=== PATIENT | female | born 1995 | race American Indian/Alaskan Native ===

== ENCOUNTER 2016-12-01 14:00 | Emergency (ER) | payer OTHER ==
[2016-12-01] MEDS ORDERED: VALIUM IM ONE (17:55)
[2016-12-01] MEDS ORDERED: MOTRIN PO ONE (17:55)
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
[2016-12-01 20:11] VITALS: BP 106/66
== END 2016-12-01 20:11 | disposition home or self-care (01) ==
LOC: ED 14:00
DX: S16.1XXA Strain of muscle, fascia and tendon at neck level, initial encounter (principal); M54.6 Pain in thoracic spine; R51 Headache; V89.2XXA Person injured in unspecified motor-vehicle accident, traffic, initial encounter; Y93.89 Activity, other specified; Y92.89 Other specified places as the place of occurrence of the external cause; Y99.8 Other external cause status
CPT/HCPCS: 72040; 72070; 96372; 99283; J3360

== ENCOUNTER 2019-11-06 15:55 | Observation (INO) | payer OTHER ==
[2019-11-06 17:41] LABS: Bilirubin,Urine NEG (Negative); Blood,Urine LG (Negative); Color,Urine Yellow (Yellow); Protein,Urine <15 mg/dL mg/dL (Negative)
[2019-11-06 18:12] LABS: HCG Qualitative,Urine Negative (Negative)
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
[2019-11-06 23:48] LABS: Hematocrit 41.2 % (30.3-42.9); Hemoglobin 14.1 gm/dl (10.1-14.3); Mean Corpuscular HGB Conc 34 % (30-34); Mean Corpuscular Volume 96 fl (79-97); Platelet Count 165 K/mm3 (140-440); Red Blood Count 4.29 M/mm3 (3.65-5.03); Red Cell Distribution Width 12.5 % (13.2-15.2)
[2019-11-07 00:05] LABS: Alanine Aminotransferase 8 units/L (7-56); Albumin 4.4 g/dL (3.9-5); Blood Urea Nitrogen 5 mg/dL (7-17); Calcium 9.5 mg/dL (8.4-10.2); Hemolysis Index 29
[2019-11-07 00:06] LABS: BUN/Creatinine Ratio 7
--- NOTE | 2019-11-07 00:55 | Cat Scan Report ---
CT abdomen pelvis w con INDICATION / CLINICAL INFORMATION: abd pain. TECHNIQUE: Axial CT imaging of abdomen and pelvis was obtained with IV contrast. Coronal and sagittal reformatte d imaging obtained and reviewed. All CT scans at this location are performed using CT dose reduction for ALARA by means of automated exposure control. COMPARISON: None available. FINDINGS: CT abdomen with contrast demonstrates normal appearance of the liver, spleen, pancreas, kidneys, and adrenal glands. Gallbladder is unremarkable. No biliary dilatation. CT pelvis with contrast demonstrates trace amount of free fluid in the posterior cul-de-sac. There is prominent endometrial thickening/fluid present. Please correlate with status of patient's menstrual cycle. The appendix is enlarged measuring 1 cm in diameter. The appendix is retrocecal in location. I do not appreciate significant periappendiceal inflammatory change Additionally, there are multiple loops of fluid-filled nondilated small bowel throughout the pelvis i n a pattern that is most suggestive of enteritis. 18 mm left ovarian cyst is noted. Visualized lung bases are clear. No acute osseous abnormality. IMPRESSION: 1. Abnormally enlarged appendix without appreciable periappendiceal inflammatory change. Findings cou ld be due to a mild acute appendicitis and clinical correlation with clinical presentation is recomme nded. 2 Multiple loops of nondilated fluid-filled small bowel are present throughout the pelvis and the pat tern most suggestive of enteritis. 3. Marked thickening/fluid within the endometrium of the uterus. Please correlate with patient's stag e of menstrual cycle. Signer Name: Nayla Gomes MD Signed: 11/07/2019 12:50 AM Workstation Name: [id number]
[2019-11-07] MEDS ORDERED: PIPERACIL/TAZOBACTA 4.5/NS 100 4.5 GM/100 ML VIAL IV ONE (01:36)
[2019-11-07] MEDS ORDERED: SODIUM CHLORIDE 0.9% 1000 ML 1,000 ML IV ONE (01:36)
[2019-11-07] MEDS ORDERED: ACETAMINOPHEN 650 MG RECT SUPP PR PRN (02:58)
[2019-11-07] MEDS ORDERED: ONDANSETRON 4 MG/2 ML INJ IV PRN (02:59)
[2019-11-07] MEDS ORDERED: MORPHINE 2 MG/1 ML INJ IV PRN (03:00)
[2019-11-07] MEDS ORDERED: D5W/0.45% NACL 1,000 ML IV SCH (03:00)
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
[2019-11-07] MEDS ORDERED: LACTATED RINGERS 1,000 ML IV SCH (04:00)
[2019-11-07] MEDS ORDERED: PIPERACILLIN/TAZOBACTAM 3.375 3.375 GM/50 ML BAG IV SCH (10:00)
--- NOTE | 2019-11-07 12:21 | Event Note ---
Date: 11/07/19 Patient seen and examined She is alert and oriented and resting comfortably in the bed She states the pain has improved and at this time she offers no specific complaints Denies nausea abdominal pain or dysuria CT of the abdomen and pelvis results reviewed Abdomen is benign Lab results reviewed General surgery consult. Possible discharge home after the surgery evaluation
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
--- NOTE | 2019-11-07 13:46 | Discharge Summary ---
Providers - Providers Date of Admission: 11/07/19 01:40 Date of discharge: 11/07/19 Attending physician: JARAD MAN 11/07/19 01:39 Consult to Physician [CONS] Routine Comment: Consulting Provider: GARRETT BEE Physician Instructions: Reason For Exam: abd pain. api Primary care physician: [facility] Hospitalization Condition: Good Pertinent studies: CT of the abdomen and pelvis Hospital course: Patient was admitted with suspected acute appendicitis This morning patient's abdomen is benign General surgery was consulted Note reviewed and discussed with general surgeon She thinks patient most likely has some enteritis She tolerated regular diet during lunchtime and denies any pain She is medically stable for discharge Will empirically prescribe Flagyl for 7 days Disposition: DC- TO HOME OR SELFCARE Time spent for discharge: 36 min - Discharge Diagnoses (1) Abdominal pain Status: Acute Qualifiers: Abdominal location: right lower quadrant Qualified Code(s): R10.31 - Right lower quadrant pain Comment: Resolved (2) Enteritis Status: Acute Comment: Empiric Flagyl x7 days Core Measure Documentation - Palliative Care Palliative Care/ Comfort Measures: Not Applicable - Core Measures Any of the following diagnoses?: none Exam - Constitutional Vitals: Temp Pulse Resp BP Pulse Ox 98.3 F 87 20 103/68 96 11/07/19 12:15 11/07/19 12:15 11/07/19 12:15 11/07/19 12:15 11/07/19 12:15 General appearance: Present: no acute distress - EENT Eyes: Present: PERRL ENT: hearing intact, clear oral mucosa - Neck Neck: Present: supple, normal ROM - Respiratory Respiratory effort: normal Respiratory: bilateral: CTA - Cardiovascular Rhythm: regular Heart Sounds: Present: S1 & S2 - Extremities Extremities: No edema - Abdominal General gastrointestinal: Present: soft, non-tender - Rectal Rectal Exam: deferred - Integumentary Integumentary: Present: clear - Musculoskeletal Musculoskeletal: strength equal bilaterally - Psychiatric Psychiatric: appropriate mood/affect - Neurologic Neurologic: CNII-XII intact, no focal deficits Plan Activity: advance as tolerated Weight Bearing Status: Full Weight Bearing Diet: regular Forms: AMA Form Prescriptions: metroNIDAZOLE [Flagyl TAB] 500 mg PO Q8HR #21 tablet
[2019-11-07 16:08] VITALS: BP 108/57
== END 2019-11-07 17:44 | disposition home or self-care (01) ==
LOC: ED 15:55 → 4A 11-07 01:40
PROVIDERS: ADMIT Internal Medicine; ATTEND Internal Medicine
DX: K35.80 Unspecified acute appendicitis (principal); K52.9 Noninfective gastroenteritis and colitis, unspecified; N94.89 Other specified conditions associated with female genital organs and menstrual cycle; M54.5 Low back pain
CPT/HCPCS: 36415; 74177; 80053; 81001; 81025; 85027; 96365; 96375; 99291; G0378; J2270; J2543; J7030; J7120; Q9967

== ENCOUNTER 2021-02-05 10:39 | Emergency (ER) | payer SELFPAY ==
[2021-02-05 10:51] VITALS: BP 134/77
[2021-02-05 12:29] LABS: HCG Qualitative,Urine Negative (Negative)
[2021-02-05 12:41] LABS: Bilirubin,Urine NEG (Negative); Blood,Urine NEG (Negative); Color,Urine Amber (Yellow); Mucus,Urine 3+ /HPF
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
== END 2021-02-05 13:15 | disposition home or self-care (01) ==
LOC: ED 10:39
DX: N76.0 Acute vaginitis (principal)
CPT/HCPCS: 81001; 81025; 87210; 87591; 99283

== ENCOUNTER 2021-12-15 23:06 | Emergency (ER) | payer MEDICAID ==
[2021-12-16 02:24] LABS: Basophils % (Auto) 0.5 % (0.0-1.8); Eosinophils # (Auto) 0.2 K/mm3 (0.0-0.4); Eosinophils % (Auto) 2.7 % (0.0-4.3); Hematocrit 40.4 % (30.3-42.9); Hemoglobin 13.3 gm/dl (10.1-14.3); Lymphocytes # (Auto) 2.8 K/mm3 (1.2-5.4); Mean Corpuscular HGB Conc 33 % (30-34); Mean Corpuscular Volume 101 fl (79-97); Monocytes # (Auto) 0.4 K/mm3 (0.0-0.8); Monocytes % (Auto) 5.9 % (0.0-7.3); Platelet Count 134 K/mm3 (140-440); Red Blood Count 4.02 M/mm3 (3.65-5.03); Red Cell Distribution Width 12.7 % (13.2-15.2)
[2021-12-16 05:04] LABS: Bilirubin,Urine Negative (Negative); Blood,Urine 3+ (Negative); Color,Urine Yellow (Yellow); Protein,Urine <30 mg dL mg/dL (Negative); Urobilinogen,Urine 0.2 mg/dL (<2.0)
[2021-12-16 05:08] LABS: Bacteria,Urine 1+ /HPF (Negative); Mucus,Urine 3+ /HPF
--- NOTE | 2021-12-16 05:19 | XRay Report ---
ABDOMEN 2 VIEWS INDICATION / CLINICAL INFORMATION: Abdominal Pain. COMPARISON: None available. FINDINGS: TUBES / LINES: None. BOWEL GAS PATTERN: No significant abnormality. FREE AIR / EXTRALUMINAL GAS: None seen. ADDITIONAL FINDINGS: No significant additional findings. CHEST: Visualized chest shows no significant abnormality. IMPRESSION: 1. No acute findings. Signer Name: Ruben Brady MD Signed: 12/16/2021 5:15 AM Workstation Name: [id number]
[2021-12-16 09:00] LABS: Alanine Aminotransferase 12 units/L (7-56); Albumin 4.5 g/dL (3.9-5); Blood Urea Nitrogen 10 mg/dL (7-17); Calcium 9.1 mg/dL (8.4-10.2); Hemolysis Index 3
[2021-12-16 09:07] LABS: BUN/Creatinine Ratio 14
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
[2021-12-16 10:06] VITALS: BP 116/64
== END 2021-12-16 10:05 | disposition home or self-care (01) ==
LOC: ED 23:06
DX: K52.9 Noninfective gastroenteritis and colitis, unspecified (principal)
CPT/HCPCS: 36415; 74019; 80053; 81001; 83690; 84702; 85025; 99284